=== PATIENT | male | born 1985 | race Caucasian/White ===

== ENCOUNTER 2018-10-21 10:55 | Outpatient (CLI) | payer OTHER ==
--- NOTE | 2018-10-21 12:01 | RAD ---
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 No acute fracture or dislocati on. No significant malalignment. No abnormal translation between flexion and extension. Mild spondylosis. IMPRESSION: Mild spondylosis. No abnormal translation or other significant acute process.
== END 2018-10-21 10:56 | disposition home or self-care (01) ==
LOC: BICRAD 10:55
PROVIDERS: ATTEND Family Medicine
DX: M54.5 Low back pain (principal); M47.816 Spondylosis without myelopathy or radiculopathy, lumbar region
CPT/HCPCS: 72100

== ENCOUNTER 2021-07-08 15:46 | Observation (INO) | payer OTHER ==
[2021-07-08] MEDS ORDERED: Ondansetron PF 4 MG/2 ML Vial IVP PRN (16:22)
[2021-07-08] MEDS ORDERED: Ondansetron ODT 4 MG TAB PO PRN (16:22)
[2021-07-08] MEDS ORDERED: Senokot S 8.6-50 MG TAB PO PRN (16:22)
[2021-07-08] MEDS ORDERED: Acetaminophen 325 MG TAB PO PRN (16:22)
[2021-07-08] MEDS ORDERED: Bisacodyl 5 MG TAB PO PRN (16:22)
[2021-07-08 16:24] VITALS: BMI 34.9
[2021-07-08] MEDS ORDERED: Sodium Chloride 0.9% 1,000 ML IV SCH (16:30)
[2021-07-08 16:47] LABS: #Eosinphils 0.1 thou/uL (0.0-0.7); #Lymphocytes 1.8 thou/uL (1.20-3.40); #Monocytes 0.6 thou/uL (0.11-0.59); #Neutrophils 3.1 thou/uL (1.40-6.50); %Basophils 0.3 % (0.0-1.0); %Eosinophils 1.9 % (0.0-10.0); %Lymphocytes 32.2 % (21.0-51.0); %Monocytes 10.4 % (0.0-10.0); %Neutrophils 55.3 % (42.0-75.0); Hemoglobin 15.6 g/dL (14.0-18.0); Mean Corpuscular HGB CONC 34.5 g/dL (32.0-36.0); Mean Corpuscular Hemoglobin 30.5 pg (27.0-31.0); Mean Corpuscular Volume 88.6 fL (78.0-98.0); Mean Platelet Volume 6.2 fL (7.4-10.4); Platelet Count 301 thou/uL (130-400); Red Blood Cell (RBC) Count 5.11 mill/uL (4.70-6.10); White Blood Cell (WBC) Count 5.6 thou/uL (4.8-10.8)
[2021-07-08 17:05] LABS: PTT 29.3 sec (22.9-36.1); Prothrombin Time 13.4 sec (12.0-14.7)
[2021-07-08 17:11] LABS: ALT (SGPT) 65 U/L (8-55); AST (SGOT) 56 U/L (5-34); Alkaline Phosphatase 89 U/L (40-110); Anion Gap 13 mmol/L (10-20); BUN (Urea Nitrogen) 14 mg/dL (8.9-20.6); Bilirubin, Total 1.1 mg/dL (0.2-1.2); Calc. Creatinine Clearance 154 mL/min (70-130); Calcium 8.8 mg/dL (7.8-10.44); Carbon Dioxide 25 mmol/L (22-29); Chloride 104 mmol/L (98-107); Globulin 3.2 g/dL (2.4-3.5); Glucose 84 mg/dL (70-105); Lipase 35 U/L (8-78); Magnesium 2.2 mg/dL (1.6-2.6); Potassium 3.8 mmol/L (3.5-5.1); Protein, Total 7.2 g/dL (6.0-8.3); Sodium 138 mmol/L (136-145)
[2021-07-08] MEDS: Pantoprazole 40 MG VIAL IVP SCH (20:02)
[2021-07-08] MEDS ORDERED: Famotidine 20 MG TAB PO SCH (21:00)
[2021-07-08] MEDS ORDERED: Famotidine/PF 20 mg/2ml Vial SLOW IVP SCH (21:00)
[2021-07-09 06:02] LABS: #Eosinphils 0.2 thou/uL (0.0-0.7); #Lymphocytes 1.7 thou/uL (1.20-3.40); #Monocytes 0.7 thou/uL (0.11-0.59); #Neutrophils 3.3 thou/uL (1.40-6.50); %Basophils 0.3 % (0.0-1.0); %Eosinophils 2.7 % (0.0-10.0); %Lymphocytes 29.5 % (21.0-51.0); %Monocytes 11.1 % (0.0-10.0); %Neutrophils 56.3 % (42.0-75.0); Hemoglobin 16.1 g/dL (14.0-18.0); Mean Corpuscular HGB CONC 35.5 g/dL (32.0-36.0); Mean Corpuscular Hemoglobin 31.4 pg (27.0-31.0); Mean Corpuscular Volume 88.4 fL (78.0-98.0); Mean Platelet Volume 6.2 fL (7.4-10.4); Platelet Count 303 thou/uL (130-400); RBC Distribution Width 10.9 % (11.5-14.5); Red Blood Cell (RBC) Count 5.12 mill/uL (4.70-6.10); White Blood Cell (WBC) Count 5.9 thou/uL (4.8-10.8)
[2021-07-09 06:09] LABS: Hemoglobin A1c 5.3 % (4.0-6.0)
[2021-07-09 06:26] LABS: ALT (SGPT) 58 U/L (8-55); AST (SGOT) 44 U/L (5-34); Albumin 3.9 g/dL (3.5-5.0); Alkaline Phosphatase 88 U/L (40-110); Anion Gap 13 mmol/L (10-20); BUN (Urea Nitrogen) 16 mg/dL (8.9-20.6); Bilirubin, Direct 0.4 mg/dL (0.1-0.3); Bilirubin, Total 1.3 mg/dL (0.2-1.2); Calc. Creatinine Clearance 152 mL/min (70-130); Carbon Dioxide 24 mmol/L (22-29); Cardiac Risk 8.3 (Less than 4.5); Chloride 105 mmol/L (98-107); Cholesterol 165 mg/dl (< 200 Desired); Glucose 80 mg/dL (70-105); HDL Cholesterol 20 mg/dL (>60 Neg Risk); Iron 82 ug/dL (65-175); Iron Binding Capacity, Total 284 mcg/dL (261-462); LDL Cholesterol, Calculated 122 mg/dL; Magnesium 2.3 mg/dL (1.6-2.6); Protein, Total 7.1 g/dL (6.0-8.3); Sodium 138 mmol/L (136-145); Triglycerides 115 mg/dL (Less than 150)
[2021-07-09 06:27] LABS: Iron 82 ug/dL (65-175); Iron Binding Capacity, Total 279 mcg/dL (261-462)
[2021-07-09 06:43] LABS: Ferritin 287.81 ng/mL (22-322)
[2021-07-09 06:45] LABS: Hep C IgG Ab Non-Reactive (NonReactive); Hep C Index 0.06 S/CO (0-0.79)
[2021-07-09] MEDS: Pantoprazole 40 MG VIAL IVP SCH (07:45)
[2021-07-09] MEDS ORDERED: Promethazine HCl 25 MG/ML VIAL IM PRN (08:44)
[2021-07-09] MEDS ORDERED: Promethazine HCl 25 MG/ML VIAL IVPB PRN (08:44)
[2021-07-09] MEDS ORDERED: Ondansetron HCl/PF 4 MG/2 ML Vial IVP PRN (08:44)
[2021-07-09] MEDS ORDERED: Fentanyl 100 MCG/2 ML VIAL ONE (08:49)
[2021-07-09] MEDS ORDERED: Lidocaine 1% PF 5 ML VIAL ONE (09:02)
[2021-07-09] MEDS ORDERED: PROPOFOL 200 MG/20 ML VIAL ONE (09:02)
[2021-07-09] MEDS ORDERED: Sucralfate 1 GM/10 ML UDCUP PO SCH (11:30)
[2021-07-09 12:39] VITALS: TEMP 98
[2021-07-09 12:49] VITALS: BP 124/79
[2021-07-12 09:18] LABS: Hep B Surface AG-Rflx Sendout Negative (Negative); Hepatitis B Core Total Negative (Negative); Hepatitis B Surface AB-Sendout Non Reactive (.)
== END 2021-07-09 12:45 | disposition home or self-care (01) ==
LOC: SURG A 15:48
PROVIDERS: ADMIT Hospitalist; ATTEND Hospitalist
PROC: 0DB38ZX Excision of Lower Esophagus, Via Natural or Artificial Opening Endoscopic, Diagnostic (ICD-10-PCS; principal; 2021-07-09)
PROC: 0DB68ZX Excision of Stomach, Via Natural or Artificial Opening Endoscopic, Diagnostic (ICD-10-PCS; 2021-07-09)
PROC: 0DB28ZX Excision of Middle Esophagus, Via Natural or Artificial Opening Endoscopic, Diagnostic (ICD-10-PCS; 2021-07-09)
DX: K22.10 Ulcer of esophagus without bleeding (principal); K29.50 Unspecified chronic gastritis without bleeding; K25.9 Gastric ulcer, unspecified as acute or chronic, without hemorrhage or perforation; R13.10 Dysphagia, unspecified; I10 Essential (primary) hypertension; R79.89 Other specified abnormal findings of blood chemistry; J30.2 Other seasonal allergic rhinitis; E66.09 Other obesity due to excess calories; Z68.35 Body mass index [BMI] 35.0-35.9, adult; Z88.0 Allergy status to penicillin
CPT/HCPCS: 36415; 80048; 80053; 80061; 80076; 82728; 83036; 83540; 83550; 83690; 83735; 84443; 85025; 85610; 85730; 86704; 86705; 86706; 86707; 86803; 86850; 86900; 86901; 87340; 87350; 88305; 88312; 88342; 96374; 96376; C9113; G0378; J2704; J3010; J7050